=== PATIENT | female | born 1960 | race Caucasian/White ===

== ENCOUNTER → 2017-03-22 | Outpatient (CLI) | payer BC ==
--- NOTE | 2017-03-22 16:26 | REPMRS ---
Patient History The patient states she had a clinical breast exam in 03/2017. Family history of endometrial cancer in maternal aunt and colorectal cancer in maternal aunt at age 50 or over. Taking unspecified hormones for 3 years. Digital Woman Screen Mammo: March 22, 2017 - Exam #: [id number] Bilateral CC and MLO view(s) were taken. Technologist: Sherine Gonzalez, Technologist Prior study comparison: March 13, 2016, digital woman screen mammo performed at [facility]. March 01, 2015, digital woman screen mammo performed at [facility]. February 07, 2014, digital woman screen mammo performed at [facility]. FINDINGS: The breast tissue is almost entirely fat. There has been no change in the appearance of the mammogram from the prior studies. There is no interval development of dominant mass, architectural distortion, or clustered microcalcification typical of malignancy. ASSESSMENT: BI-RADS/ACR category 1 mammogram. Negative. Recommendation Routine screening mammogram of both breasts in 1 year (for women over age 40). This mammogram was interpreted with the aid of an FDA-approved computer-aided dectection system. Electronically Signed By: Víctor Gentile MD 03/22/17 [id number]
== END ==
LOC: M WHC 15:09
PROVIDERS: ATTEND Nurse Practitioner Family
DX: Z12.31 Encounter for screening mammogram for malignant neoplasm of breast (principal)

== ENCOUNTER → 2018-06-14 | Outpatient (CLI) | payer BC | LOC: M WHC 09:52 | DX: Z12.31 Encounter for screening mammogram for malignant neoplasm of breast (principal); Z92.29 Personal history of other drug therapy | CPT/HCPCS: 77067 ==

== ENCOUNTER → 2020-07-03 | Outpatient (CLI) | payer BC, OTHER ==
--- NOTE | 2020-07-03 10:07 | REPMRS ---
Patient History The patient states she had a clinical breast exam in 06/2020. Family history of colorectal cancer at age 50 or over in maternal aunt, endometrial cancer in maternal aunt. Taking unspecified hormones for 5 years. Digital Woman Screen Mammo: July 03, 2020 - Exam #: [id number] Bilateral CC and MLO view(s) were taken. Technologist: Sherine Gonzalez, Technologist Prior study comparison: June 15, 2019, bilateral digital woman screen mammo performed at [facility]. June 14, 2018, bilateral digital woman screen mammo performed at [facility]. March 22, 2017, digital woman screen mammo performed at [facility]. FINDINGS: The breast tissue is almost entirely fat. The Volpara volumetric breast density category is: A. There is a 3 mm nery density in the superomedial quadrant of the right breast which appears to contain 1 or 2 microcalcifications. This merits further evaluation. There has been no change in the appearance of the mammogram from the prior studies. There is no interval development of dominant mass, architectural distortion, or grouped microcalcification typical of malignancy. 3-D tomosynthesis shows no additional findings. Assessment: BI-RADS/ACR category 0 mammogram, Incomplete: Need additional imaging evaluation and/or prior mammograms for comparison. Recommendation Ultrasound and special view mammogram of the right breast. This patient's [facility] Lifetime Breast Cancer RIsk is estimated at 7.2 %. This mammogram was interpreted with the aid of an FDA-approved computer-aided dectection system. Electronically Signed By: Víctor Gentile MD 07/03/20 2753
== END ==
LOC: M WHC 08:35
PROVIDERS: ATTEND Nurse Practitioner Family
DX: R92.2 Inconclusive mammogram (principal)

== ENCOUNTER → 2020-07-12 | Outpatient (CLI) | payer BC ==
--- NOTE | 2020-07-15 12:28 | REP ---
INDICATION: ADDL VIEWS/RIGHT BREAST; RIGHT BREAST FOR CALCIFICATIONS. COMPARISON: 07/03/2020 as well as on the prior exams. TECHNIQUE: Magnification compression views right breast performed as well as focused right breast ultrasound. FINDINGS: There is a 4 mm low-density nodule in the upper inner right breast. That is not well-defined. There do appear to be 2 tiny calcifications within the nodule. Focused right breast ultrasound performed in the upper inner right breast. No cystic or solid nodule is identified sonographically. IMPRESSION: BIRADS/ACR category 4A, suspicious. New 4 mm nodule contains 2 tiny calcifications in the upper inner right breast. It cannot be identified sonographically. My suspicion that this represents cancer is relatively low but I would recommend stereotactic biopsy at this time. This mammogram was interpreted with the aid of an FDA-approved computer-aided detection system. The patient letter being requested is M 4. RECOMMENDATION: Recommend stereotactic biopsy right breast. <Electronically signed by Jose Song > 07/15/20 1835
== END ==
LOC: M WHC 14:46
PROVIDERS: ATTEND Nurse Practitioner Family
DX: R92.1 Mammographic calcification found on diagnostic imaging of breast (principal); N63.12 Unspecified lump in the right breast, upper inner quadrant

== ENCOUNTER → 2020-08-20 | Outpatient (CLI) | payer BC, OTHER ==
--- NOTE | 2020-08-20 17:00 | REP ---
INDICATION: R92.8 ABN RIGHT BREAST MAMMO/CK CLIP PLACEMENT. COMPARISON: Comparison right breast mammography 12 July 2020.. TECHNIQUE: Two specimen radiographs. FINDINGS: Specimen radiography demonstrates microcalcifications consistent with target microcalcifications in 2 of the retrieved specimens. IMPRESSION: Specimen radiography shows microcalcifications. <Electronically signed by Víctor Gentile > 08/20/20 [id number]
--- NOTE | 2020-08-20 17:00 | REP ---
INDICATION: R92.8 ABN RIGHT BREAST MAMMO. COMPARISON: None. TECHNIQUE: The procedure was performed under the general supervision of Dr. Gentile. The risks and benefits of the procedure were explained to the patient and informed consent was obtained. The patient has a history of a 4 mm low-density nodule in the upper inner right breast, with 2 tiny calcifications within the nodule, seen on a previous mammogram dated 07/12/2020. A craniocaudal approach was utilized. The nodule was localized using stereotactic mammographic guidance. 1% Xylocaine was used as a local anesthetic. An 10 gauge, suction assisted Mammotome needle was inserted and 10 core biopsy samples were obtained. Specimen radiograph demonstrates the presence of calcifications to be within the specimen. A marker clip (HydroMARK shape 1) was placed at the biopsy site. The patient tolerated the procedure well and there were no immediate complications. After the appropriate amount of monitored convalescence, the patient was discharged from the department. FINDINGS: None IMPRESSION: Stereotactic right breast biopsy with marker clip placement (HydroMARK shape 1). <Electronically signed by Sina Michelle > 08/20/20 1535 <Electronically signed by Víctor Gentile > 08/20/20 [id number]
--- NOTE | 2020-08-20 17:00 | REP ---
INDICATION: R92.8 ABN RIGHT BREAST MAMMO. Marker clip placement views. COMPARISON: Comparison mammography 12 July 2020. TECHNIQUE: Craniocaudal and mediolateral views of the right breast are obtained. FINDINGS: Mediolateral and craniocaudal views of the right breast demonstrate a needle biopsy marker clip in the location where previous mammography showed the micro calcifications in the small nodular density. This is no longer apparent. IMPRESSION: Marker clip in good position superomedial right breast. <Electronically signed by Víctor Gentile > 08/20/20 [id number]
[2020-08-20 17:07] VITALS: BP 140/62
== END ==
LOC: M WHCPRO 13:11
PROVIDERS: ATTEND Surgery
DX: N64.59 Other signs and symptoms in breast (principal); R92.8 Other abnormal and inconclusive findings on diagnostic imaging of breast

== ENCOUNTER → 2021-02-17 | Outpatient (CLI) | payer BC, OTHER ==
--- NOTE | 2021-02-17 15:44 | REP ---
INDICATION: 6 MN F/U R BREAST ASSESS STABILITY OF RIGHT BREAST LEASION. COMPARISON: Multiple TECHNIQUE: Digital mammography was obtained right breast in the CC and MLO projections using 2D and 3D modalities and compared to the prior exams. By history, the patient has no complaints of a palpable breast abnormality or other significant breast complaints. FINDINGS: The surgical biopsy clip is unchanged. There are no new abnormal calcifications. There is an expected amount of residual soft tissue density surrounding the biopsy clip. This is likely residual developing scar. There are no spiculated lesions. IMPRESSION: BIRADS/ACR category 2 benign findings.. The patient letter being requested is M1. RECOMMENDATION: Repeat screening mammography during its regularly scheduled annual interval (for women over 40). <Electronically signed by Kiet Moe > 02/17/21 0312
== END ==
LOC: M WHC 15:03
PROVIDERS: ATTEND Surgery
DX: R92.8 Other abnormal and inconclusive findings on diagnostic imaging of breast (principal); Z97.8 Presence of other specified devices
CPT/HCPCS: 77065; G0279

== ENCOUNTER → 2021-08-13 | Outpatient (CLI) | payer BC, OTHER | LOC: M WHC 14:11 | PROVIDERS: ATTEND Advanced Practice Midwife | DX: Z12.31 Encounter for screening mammogram for malignant neoplasm of breast (principal) ==

== ENCOUNTER → 2021-08-13 | Outpatient (REF) | payer BC, OTHER | LOC: M SFHCWAGY 17:12 | PROVIDERS: ATTEND Advanced Practice Midwife | DX: Z12.72 Encounter for screening for malignant neoplasm of vagina (principal) ==

== ENCOUNTER → 2022-08-19 | Outpatient (CLI) | payer BC, OTHER | LOC: M WHC 10:39 | PROVIDERS: ATTEND Advanced Practice Midwife | DX: Z12.31 Encounter for screening mammogram for malignant neoplasm of breast (principal) ==

== ENCOUNTER → 2023-09-01 | Outpatient (CLI) | payer BC | LOC: M WHC 13:57 | PROVIDERS: ATTEND Advanced Practice Midwife | DX: Z12.31 Encounter for screening mammogram for malignant neoplasm of breast (principal) ==

== ENCOUNTER → 2024-11-01 | Outpatient (CLI) | payer BC | LOC: M WHC 13:19 | PROVIDERS: ATTEND Advanced Practice Midwife | DX: Z13.820 Encounter for screening for osteoporosis (principal) ==

== ENCOUNTER → 2024-11-01 | Outpatient (CLI) | payer BC | LOC: M WHC 13:18 | PROVIDERS: ATTEND Advanced Practice Midwife | DX: Z12.31 Encounter for screening mammogram for malignant neoplasm of breast (principal); R92.313 Mammographic fatty tissue density, bilateral breasts ==